=== PATIENT | female | born 1995 | race African-American/Black ===

== ENCOUNTER 2016-11-25 12:04 | Emergency (ER) | payer OTHER, SELFPAY ==
[~2016-11-25] VITALS: Ht 162.6 cm; Wt 81.8 kg
[2016-11-25 15:18] VITALS: BP 132/79
== END 2016-11-25 15:21 | disposition home or self-care (01) ==
LOC: EMS 12:06
DX: J06.9 Acute upper respiratory infection, unspecified (principal)
CPT/HCPCS: 99283

== ENCOUNTER 2017-09-07 00:29 | Observation (INO) | payer OTHER ==
[~2017-09-07] VITALS: Ht 162.6 cm; Wt 93.4 kg
[2017-09-07 02:02] VITALS: BP 121/69
== END 2017-09-07 01:57 | disposition home or self-care (01) ==
LOC: 4S 00:34
PROVIDERS: ADMIT Obstetrics & Gynecology; ATTEND Obstetrics & Gynecology
DX: O42.913 Preterm premature rupture of membranes, unspecified as to length of time between rupture and onset of labor, third trimester (principal); Z3A.31 31 weeks gestation of pregnancy
CPT/HCPCS: 36415; 59025; 89060; G0378

== ENCOUNTER 2017-10-01 21:03 | Observation (INO) | payer MEDICAID, OTHER ==
[2017-10-01] MEDS ORDERED: PREN1TAB80 PO (22:05)
[2017-10-01] MEDS ORDERED: IRON-24 PO (22:06)
[2017-10-01 22:07] VITALS: BP 119/78
== END 2017-10-02 00:15 | disposition home or self-care (01) ==
LOC: 4S 21:03
PROVIDERS: ADMIT Obstetrics & Gynecology; ATTEND Obstetrics & Gynecology
DX: O62.9 Abnormality of forces of labor, unspecified (principal); O26.893 Other specified pregnancy related conditions, third trimester; R10.9 Unspecified abdominal pain; Z3A.36 36 weeks gestation of pregnancy
CPT/HCPCS: 59025; G0378 ×2

== ENCOUNTER 2017-10-05 12:50 | Observation (INO) | payer MEDICAID, OTHER ==
[~2017-10-05] VITALS: Ht 162.6 cm; Wt 94.3 kg
[~2017-10-05 12:50] MED LIST: IRON-24 PO; PREN1TAB80 PO
[2017-10-05 13:46] VITALS: BP 123/75
== END 2017-10-05 14:45 | disposition home or self-care (01) ==
LOC: 4S 12:50
PROVIDERS: ADMIT Obstetrics & Gynecology; ATTEND Obstetrics & Gynecology
DX: O69.5XX0 Labor and delivery complicated by vascular lesion of cord, not applicable or unspecified (principal); Z3A.36 36 weeks gestation of pregnancy
CPT/HCPCS: 59025; 76805; G0378

== ENCOUNTER 2017-10-15 09:40 | Observation (INO) | payer MEDICAID ==
[~2017-10-15] VITALS: Ht 162.6 cm; Wt 91.2 kg
[2017-10-15 10:00] VITALS: BP 116/73
== END 2017-10-15 11:45 | disposition home or self-care (01) ==
LOC: 4S 09:40
PROVIDERS: ADMIT Obstetrics & Gynecology; ATTEND Obstetrics & Gynecology
DX: O62.9 Abnormality of forces of labor, unspecified (principal); O42.92 Full-term premature rupture of membranes, unspecified as to length of time between rupture and onset of labor; O99.013 Anemia complicating pregnancy, third trimester; Z3A.38 38 weeks gestation of pregnancy
CPT/HCPCS: 36415; 59025; 89060; G0378

== ENCOUNTER 2018-08-12 21:44 | Emergency (ER) | payer SELFPAY ==
[~2018-08-12] VITALS: Ht 162.6 cm; Wt 86.4 kg
[2018-08-13 05:26] VITALS: BP 129/77
== END 2018-08-13 05:33 | disposition home or self-care (01) ==
LOC: EMS 21:45
DX: F41.9 Anxiety disorder, unspecified (principal); J02.9 Acute pharyngitis, unspecified; K29.70 Gastritis, unspecified, without bleeding; K21.9 Gastro-esophageal reflux disease without esophagitis

== ENCOUNTER 2018-08-29 19:19 | Emergency (ER) | payer SELFPAY ==
[~2018-08-29] VITALS: Ht 162.6 cm; Wt 86.4 kg
[2018-08-29] MEDS ORDERED: OMEP20 PO (19:42)
[2018-08-29] MEDS ORDERED: ACETAMINOPHEN/CODEINE 300-30 MG TABLET PO ONE (20:30)
[2018-08-29 21:08] VITALS: BP 136/87
== END 2018-08-29 21:18 | disposition home or self-care (01) ==
LOC: EMS 19:21
DX: K02.9 Dental caries, unspecified (principal); I10 Essential (primary) hypertension; K21.9 Gastro-esophageal reflux disease without esophagitis; F41.9 Anxiety disorder, unspecified

== ENCOUNTER 2018-08-30 18:57 | Emergency (ER) | payer SELFPAY ==
[~2018-08-30] VITALS: Ht 170.2 cm; Wt 86.4 kg
[~2018-08-30 18:57] MED LIST changes: -IRON-24 PO; +OMEP20 PO; -PREN1TAB80 PO
[2018-08-30] MEDS ORDERED: HydrOXYzine PAMOATE 25 MG CAPSULE PO ONE (21:00)
[2018-08-30 22:00] VITALS: BP 132/73
== END 2018-08-30 22:31 | disposition home or self-care (01) ==
LOC: EMS 18:58
DX: M62.838 Other muscle spasm (principal); I10 Essential (primary) hypertension; K21.9 Gastro-esophageal reflux disease without esophagitis; F41.9 Anxiety disorder, unspecified

== ENCOUNTER 2018-09-13 21:10 | Emergency (ER) | payer SELFPAY ==
[~2018-09-13] VITALS: Ht 162.6 cm; Wt 81.8 kg
[2018-09-13 21:20] VITALS: BP 149/95
[2018-09-13] MEDS ORDERED: MET750 PO (21:26)
== END 2018-09-13 23:03 | disposition left against medical advice (07) ==
LOC: EMS 21:10
DX: R52 Pain, unspecified (principal); Z53.21 Procedure and treatment not carried out due to patient leaving prior to being seen by health care provider

== ENCOUNTER 2018-10-05 19:49 | Emergency (ER) | payer OTHER ==
[~2018-10-05] VITALS: Ht 162.6 cm; Wt 94.5 kg
[~2018-10-05 19:49] MED LIST changes: +MET750 PO; -OMEP20 PO
[2018-10-05] MEDS ORDERED: PB/HYOSCY/ATR/SCOP/LIDO/MAALOX 55 ML BOTTLE PO ONE (21:45)
[2018-10-05 22:04] LABS: BASOPHILS % (AUTO) 0.4 % (0.0-2.0); EOSINOPHILS % (AUTO) 1.9 % (1.0-6.0); HEMATOCRIT 36.7 % (36-46); HEMOGLOBIN 12.5 g/dL (12.0-16.0); LYMPHOCYTES # (AUTO) 3.7 K/uL (1.0-4.8); LYMPHOCYTES % (AUTO) 31.4 % (22.0-44.0); MEAN CORPUSCULAR HEMOGLOBIN 25.6 pg (26.0-34.0); MEAN CORPUSCULAR HGB CONC 34.1 G/dL (31.0-37.0); MEAN CORPUSCULAR VOLUME 75 fL (80-100); MONOCYTES # (AUTO) 0.9 K/uL (0.1-1.0); MONOCYTES % (AUTO) 7.8 % (2.0-9.0); NEUTROPHILS # (AUTO) 6.9 K/uL (1.8-7.7); NEUTROPHILS % (AUTO) 58.5 % (40.0-70.0); PLATELET COUNT (AUTO) 353 K/uL (150-450); RED CELL DISTRIBUTION WIDTH 14.1 % (11.5-14.5)
[2018-10-05 22:17] LABS: APPEARANCE,URINE CLEAR (CLEAR); BILIRUBIN,URINE NEGATIVE (NEGATIVE); GLUCOSE, URINE (UA) NEGATIVE (NEGATIVE); KETONES,URINE NEGATIVE (NEGATIVE); LEUKOCYTE ESTERASE ,URINE NEGATIVE (NEGATIVE); NITRATE,URINE NEGATIVE (NEGATIVE); OCCULT BLOOD,URINE SMALL (NEGATIVE); PH,URINE 7.5 (5.0-8.0); PROTEIN,URINE TRACE (NEGATIVE); UROBILINOGEN,URINE 0.2 mg/dL (<=1.0)
[2018-10-05 22:25] LABS: ANION GAP 9 mmol/L (8-16); CALCIUM, TOTAL 9.4 mg/dL (8.8-10.5); CARBON DIOXIDE 28 mmol/L (22-29); CHLORIDE 102 mmol/L (98-107); CREATININE 0.62 mg/dL (0.60-1.30); GLOMERULAR FILTR. RATE CALC > 60 mL/min (>60); GLUCOSE,RANDOM 91 mg/dL (70-110); POTASSIUM 3.8 mmol/L (3.5-5.1); SODIUM SERUM 139 mmol/L (136-145); UREA NITROGEN, BLOOD 11 mg/dL (7-18)
[2018-10-05 22:31] LABS: ALANINE AMINOTRANSFERASE 76 U/L (12-78); ALBUMIN 4.2 g/dL (3.4-5.0); ALKALINE PHOSPHATASE 128 U/L (46-116); ASPARTATE AMINOTRANSFERASE 41 U/L (15-37); BILIRUBIN,TOTAL 0.2 mg/dL (0.1-1.0); LIPASE 190 U/L (73-393); TOTAL PROTEIN, SERUM 8.6 g/dL (6.4-8.2)
[2018-10-05 22:34] LABS: BACTERIA,URINE Rare /HPF (None Seen); SQUAMOUS EPITHELIAL CELL,UR Few /LPF (None Seen); WBC,URINE 0-2 /HPF (0-5)
[2018-10-05 22:40] VITALS: BP 138/88
[2018-10-05 22:47] LABS: PLATELET MORPHOLOGY COMMENT NORMAL
== END 2018-10-05 22:54 | disposition home or self-care (01) ==
LOC: EMS 19:51
DX: R10.9 Unspecified abdominal pain (principal); M79.601 Pain in right arm; M79.604 Pain in right leg; I10 Essential (primary) hypertension; K21.9 Gastro-esophageal reflux disease without esophagitis; F41.9 Anxiety disorder, unspecified

== ENCOUNTER 2018-10-12 15:05 | Emergency (ER) | payer OTHER ==
[~2018-10-12] VITALS: Ht 162.6 cm; Wt 94.5 kg
[2018-10-12] MEDS ORDERED: METHOCARBAMOL 500 MG TABLET PO ONE (16:30)
[2018-10-12] MEDS ORDERED: KETOROLAC TROMETHAMINE 30 MG/ML VIAL IM ONE (16:30)
[2018-10-12 17:20] VITALS: BP 141/87
== END 2018-10-12 17:45 | disposition home or self-care (01) ==
LOC: EMS 15:06
DX: M54.41 Lumbago with sciatica, right side (principal); I10 Essential (primary) hypertension; F41.9 Anxiety disorder, unspecified; K21.9 Gastro-esophageal reflux disease without esophagitis
CPT/HCPCS: 96372; 99283; J1885

== ENCOUNTER 2018-11-29 18:51 | Emergency (ER) | payer OTHER ==
[~2018-11-29] VITALS: Ht 162.6 cm; Wt 90.9 kg
[2018-11-29] MEDS ORDERED: RANI50VI4 IM (19:00)
[2018-11-29] MEDS ORDERED: FERR134T2 PO (19:00)
[2018-11-29 19:24] LABS: BASOPHILS % (AUTO) 0.2 % (0.0-2.0); EOSINOPHILS % (AUTO) 3.1 % (1.0-6.0); HEMATOCRIT 35.7 % (36-46); HEMOGLOBIN 12.3 g/dL (12.0-16.0); LYMPHOCYTES # (AUTO) 3.5 K/uL (1.0-4.8); LYMPHOCYTES % (AUTO) 29.3 % (22.0-44.0); MEAN CORPUSCULAR HEMOGLOBIN 25.8 pg (26.0-34.0); MEAN CORPUSCULAR HGB CONC 34.5 G/dL (31.0-37.0); MEAN CORPUSCULAR VOLUME 75 fL (80-100); MONOCYTES # (AUTO) 0.9 K/uL (0.1-1.0); MONOCYTES % (AUTO) 7.9 % (2.0-9.0); NEUTROPHILS % (AUTO) 59.5 % (40.0-70.0); PLATELET COUNT (AUTO) 343 K/uL (150-450); RED BLOOD CELL COUNT(AUTO) 4.78 MIL/uL (4.00-5.20); RED CELL DISTRIBUTION WIDTH 14.7 % (11.5-14.5)
[2018-11-29 19:39] LABS: ANION GAP 7 mmol/L (8-16); CALCIUM, TOTAL 9.4 mg/dL (8.8-10.5); CARBON DIOXIDE 30 mmol/L (22-29); CHLORIDE 100 mmol/L (98-107); CREATININE 0.71 mg/dL (0.60-1.30); GLOMERULAR FILTR. RATE CALC > 60 mL/min (>60); GLUCOSE,RANDOM 84 mg/dL (70-110); POTASSIUM 3.3 mmol/L (3.5-5.1); SODIUM SERUM 137 mmol/L (136-145); UREA NITROGEN, BLOOD 8 mg/dL (7-18)
[2018-11-29 19:51] LABS: ALANINE AMINOTRANSFERASE 64 U/L (12-78); ALBUMIN 3.9 g/dL (3.4-5.0); ALKALINE PHOSPHATASE 116 U/L (46-116); ASPARTATE AMINOTRANSFERASE 30 U/L (15-37); BILIRUBIN,TOTAL 0.4 mg/dL (0.1-1.0); HCG,QUANTITATIVE < 1 mIU/mL (0-6); LIPASE 176 U/L (73-393); TOTAL PROTEIN, SERUM 8.4 g/dL (6.4-8.2)
[2018-11-29 21:38] LABS: APPEARANCE,URINE CLOUDY (CLEAR); BILIRUBIN,URINE NEGATIVE (NEGATIVE); GLUCOSE, URINE (UA) NEGATIVE (NEGATIVE); KETONES,URINE TRACE mg/dL (NEGATIVE); LEUKOCYTE ESTERASE ,URINE NEGATIVE (NEGATIVE); NITRATE,URINE NEGATIVE (NEGATIVE); OCCULT BLOOD,URINE LARGE (NEGATIVE); PH,URINE 5.5 (5.0-8.0); PROTEIN,URINE NEGATIVE (NEGATIVE)
[2018-11-29 21:56] VITALS: BP 128/79
[2018-11-29 21:58] LABS: AMPHET/METH SCREEN,URINE NEGATIVE (NEGATIVE); BARBITURATE SCREEN, URINE NEGATIVE (NEGATIVE); BENZODIAZEPINES SCREEN,URINE NEGATIVE (NEGATIVE); CANNABINOID SCREEN,URINE NEGATIVE (NEGATIVE); COCAINE SCREEN,URINE NEGATIVE (NEGATIVE); METHADONE SCREEN, URINE NEGATIVE (NEGATIVE); OPIATE SCREEN,URINE NEGATIVE (NEGATIVE); PHENCYCLIDINE SCREEN,URINE NEGATIVE (NEGATIVE)
[2018-11-29] MEDS ORDERED: FERROUS GLUCONATE 324 MG TABLET PO ONE (22:00)
[2018-11-29 22:08] LABS: BACTERIA,URINE Few /HPF (None Seen); MUCUS,URINE Few LPF (None Seen); SQUAMOUS EPITHELIAL CELL,UR Moderate /LPF (None Seen); WBC,URINE 0-2 /HPF (0-5)
== END 2018-11-29 22:41 | disposition home or self-care (01) ==
LOC: EMS 18:52
DX: R07.81 Pleurodynia (principal); F41.9 Anxiety disorder, unspecified; I10 Essential (primary) hypertension; Z79.899 Other long term (current) drug therapy

== ENCOUNTER 2020-06-15 18:22 | Emergency (ER) | payer OTHER ==
[~2020-06-15] VITALS: Ht 162.6 cm; Wt 111.8 kg
[~2020-06-15 18:22] MED LIST changes: +FERR134T2 PO; -MET750 PO; +RANI50VI4 IM
[2020-06-15] MEDS ORDERED: SERT50TA12 PO (18:29)
[2020-06-15] MEDS ORDERED: ACET-2865 PO (18:29)
[2020-06-15] MEDS ORDERED: FAMO20 PO (18:29)
[2020-06-15 19:15] VITALS: BP 127/74
== END 2020-06-15 19:34 | disposition home or self-care (01) ==
LOC: EMS 18:29
DX: S09.93XA Unspecified injury of face, initial encounter (principal); F41.9 Anxiety disorder, unspecified; K21.9 Gastro-esophageal reflux disease without esophagitis; I10 Essential (primary) hypertension; X58.XXXA Exposure to other specified factors, initial encounter; Y93.89 Activity, other specified; Y92.89 Other specified places as the place of occurrence of the external cause; Y99.8 Other external cause status
CPT/HCPCS: 99283; Z7502

== ENCOUNTER 2021-02-21 06:36 | Emergency (ER) | payer OTHER ==
[~2021-02-21] VITALS: Ht 165.1 cm; Wt 104.5 kg
[~2021-02-21 06:36] MED LIST changes: +ACET-2247 PO; +FAMO20 PO; -RANI50VI4 IM; +SERT-158 PO
[2021-02-21] MEDS ORDERED: KETOROLAC TROMETHAMINE 30 MG/ML VIAL IVP ONE (07:30)
[2021-02-21] MEDS ORDERED: SODIUM CHLORIDE 0.9% 1,000 ML IV ONE (07:30)
[2021-02-21] MEDS ORDERED: MECLIZINE HCL 25 MG TABLET PO ONE (07:30)
[2021-02-21] MEDS ORDERED: ONDANSETRON HCL 4 MG/2 ML VIAL IVP ONE (07:30)
[2021-02-21 07:53] LABS: BASOPHILS % (AUTO) 0.4 % (0.0-2.0); EOSINOPHILS % (AUTO) 3.3 % (1.0-6.0); HEMATOCRIT 35.2 % (36-46); LYMPHOCYTES # (AUTO) 3.9 K/uL (1.0-4.8); LYMPHOCYTES % (AUTO) 38.9 % (22.0-44.0); MEAN CORPUSCULAR HEMOGLOBIN 25.8 pg (26.0-34.0); MEAN CORPUSCULAR HGB CONC 34.1 G/dL (31.0-37.0); MEAN CORPUSCULAR VOLUME 76 fL (80-100); MONOCYTES # (AUTO) 0.7 K/uL (0.1-1.0); NEUTROPHILS % (AUTO) 50.4 % (40.0-70.0); PLATELET COUNT (AUTO) 330 K/uL (150-450); RED BLOOD CELL COUNT(AUTO) 4.65 MIL/uL (4.00-5.20); RED CELL DISTRIBUTION WIDTH 14.5 % (11.5-14.5)
[2021-02-21 07:59] LABS: COVID AG,FIA SOURCE NASOPHARYNGEAL
[2021-02-21 08:02] LABS: CALCIUM, TOTAL 8.9 mg/dL (8.8-10.5); CARBON DIOXIDE 26 mmol/L (22-29); CHLORIDE 99 mmol/L (98-107); CREATININE 0.74 mg/dL (0.60-1.30); GLOMERULAR FILTR. RATE CALC > 60 mL/min (>60); GLUCOSE,RANDOM 121 mg/dL (70-110); POTASSIUM 3.8 mmol/L (3.5-5.1); UREA NITROGEN, BLOOD 5 mg/dL (7-18)
[2021-02-21 08:04] LABS: URIC ACID 6.5 mg/dL (2.6-7.2)
[2021-02-21 08:09] LABS: % IRON SATURATION 10.6 % (22-44); IRON, SERUM 43 mcg/dL (50-175); TOTAL IRON BINDING CAPACITY 402 mcg/dL (250-450)
[2021-02-21 08:11] LABS: ANION GAP 11 mmol/L (8-16); SODIUM SERUM 136 mmol/L (136-145)
[2021-02-21 08:13] LABS: ALANINE AMINOTRANSFERASE 165 U/L (12-78); ALBUMIN 4.2 g/dL (3.4-5.0); ALKALINE PHOSPHATASE 157 U/L (46-116); ASPARTATE AMINOTRANSFERASE 97 U/L (15-37); BILIRUBIN,TOTAL 0.3 mg/dL (0.1-1.0); HCG,QUANTITATIVE < 1 mIU/mL (0-6); LIPASE 144 U/L (73-393); TOTAL PROTEIN, SERUM 8.2 g/dL (6.4-8.2)
[2021-02-21 12:53] VITALS: BP 138/80
== END 2021-02-21 12:54 | disposition home or self-care (01) ==
LOC: EMS 06:37
DX: S39.012A Strain of muscle, fascia and tendon of lower back, initial encounter (principal); K21.9 Gastro-esophageal reflux disease without esophagitis; K76.0 Fatty (change of) liver, not elsewhere classified; R51.9 Headache, unspecified; R42 Dizziness and giddiness; K82.4 Cholesterolosis of gallbladder; R10.2 Pelvic and perineal pain; Z20.822 Contact with and (suspected) exposure to COVID-19; X58.XXXA Exposure to other specified factors, initial encounter; Y93.89 Activity, other specified; Y92.89 Other specified places as the place of occurrence of the external cause; Y99.8 Other external cause status
CPT/HCPCS: 71045; 72100; 76700; 80053; 83540; 83550; 83690; 84550; 84702; 85025; 87426; 96361; 96374; 96375; 99285; J1885; J2405; J7030

== ENCOUNTER 2021-09-29 00:58 | Emergency (ER) | payer OTHER ==
[~2021-09-29] VITALS: Ht 162.6 cm; Wt 94.5 kg
[2021-09-29 01:01] VITALS: BP 131/77
[2021-09-29 03:21] LABS: BASOPHILS % (AUTO) 0.3 % (0.0-2.0); EOSINOPHILS % (AUTO) 1.7 % (1.0-6.0); HEMOGLOBIN 11.6 g/dL (12.0-16.0); LYMPHOCYTES # (AUTO) 4.4 K/uL (1.0-4.8); LYMPHOCYTES % (AUTO) 29.8 % (22.0-44.0); MEAN CORPUSCULAR HEMOGLOBIN 23.9 pg (26.0-34.0); MEAN CORPUSCULAR HGB CONC 34.2 G/dL (31.0-37.0); MEAN CORPUSCULAR VOLUME 70 fL (80-100); MONOCYTES # (AUTO) 0.8 K/uL (0.1-1.0); MONOCYTES % (AUTO) 5.1 % (2.0-9.0); NEUTROPHILS # (AUTO) 9.3 K/uL (1.8-7.7); NEUTROPHILS % (AUTO) 63.1 % (40.0-70.0); PLATELET COUNT (AUTO) 349 K/uL (150-450); RED BLOOD CELL COUNT(AUTO) 4.86 MIL/uL (4.00-5.20); RED CELL DISTRIBUTION WIDTH 16.6 % (11.5-14.5)
[2021-09-29 03:36] LABS: APPEARANCE,URINE CLEAR (CLEAR); BILIRUBIN,URINE NEGATIVE (NEGATIVE); GLUCOSE, URINE (UA) NEGATIVE (NEGATIVE); KETONES,URINE NEGATIVE (NEGATIVE); LEUKOCYTE ESTERASE ,URINE NEGATIVE (NEGATIVE); NITRATE,URINE NEGATIVE (NEGATIVE); OCCULT BLOOD,URINE MODERATE (NEGATIVE); PROTEIN,URINE NEGATIVE (NEGATIVE); UROBILINOGEN,URINE 0.2 mg/dL (<=1.0)
[2021-09-29 03:36] LABS: ANION GAP 11 mmol/L (8-16); CALCIUM, TOTAL 9.1 mg/dL (8.8-10.5); CARBON DIOXIDE 26 mmol/L (22-29); CHLORIDE 101 mmol/L (98-107); CREATININE 0.76 mg/dL (0.60-1.30); GLOMERULAR FILTR. RATE CALC > 60 mL/min (>60); GLUCOSE,RANDOM 121 mg/dL (70-110); POTASSIUM 3.9 mmol/L (3.5-5.1); SODIUM SERUM 138 mmol/L (136-145); UREA NITROGEN, BLOOD 6 mg/dL (7-18)
[2021-09-29 03:39] LABS: BACTERIA,URINE Rare /HPF (None Seen); WBC,URINE 0-2 /HPF (0-5)
[2021-09-29 03:47] LABS: ALANINE AMINOTRANSFERASE 39 U/L (12-78); ALBUMIN 3.5 g/dL (3.4-5.0); ALKALINE PHOSPHATASE 102 U/L (46-116); ASPARTATE AMINOTRANSFERASE 33 U/L (15-37); BILIRUBIN,TOTAL 0.3 mg/dL (0.1-1.0); HCG,QUANTITATIVE 718 mIU/mL (0-6); LIPASE 102 U/L (73-393)
== END 2021-09-29 04:17 | disposition home or self-care (01) ==
LOC: EMS 01:00
DX: O26.891 Other specified pregnancy related conditions, first trimester (principal); R07.89 Other chest pain; I10 Essential (primary) hypertension; F41.9 Anxiety disorder, unspecified; K21.9 Gastro-esophageal reflux disease without esophagitis; Z79.899 Other long term (current) drug therapy; Z3A.01 Less than 8 weeks gestation of pregnancy
CPT/HCPCS: 76801; 76817; 80053; 81001; 83690; 84702; 85025; 99284

== ENCOUNTER 2024-12-16 14:52 | Emergency (ER) | payer OTHER ==
[~2024-12-16] VITALS: Ht 162.6 cm; Wt 99.1 kg
[2024-12-16 14:54] VITALS: BP 143/99; PULSE 82; RESP 18; TEMP 98.7; O2SAT 99
[2024-12-16] MEDS ORDERED: METF-1211 PO (14:59)
[2024-12-16] MEDS ORDERED: [UNRECOGNIZED DRUG - CODE] PO (14:59)
[2024-12-16] MEDS ORDERED: OXYC-38 PO (15:00)
[2024-12-16] MEDS: OxyCODONE HCL/ACETAMINOPHEN 5-325 MG TABLET PO ONE (15:18)
== END 2024-12-16 15:20 | disposition home or self-care (01) ==
LOC: EMS 14:52
DX: K08.89 Other specified disorders of teeth and supporting structures (principal); F41.9 Anxiety disorder, unspecified; E11.9 Type 2 diabetes mellitus without complications; I10 Essential (primary) hypertension; Z71.6 Tobacco abuse counseling; Z79.84 Long term (current) use of oral hypoglycemic drugs; Z87.19 Personal history of other diseases of the digestive system
CPT/HCPCS: 82962; 99283

== ENCOUNTER 2025-03-06 15:44 | Emergency (ER) | payer OTHER ==
[~2025-03-06] VITALS: Ht 162.6 cm; Wt 96.8 kg
[~2025-03-06 15:44] MED LIST changes: -ACET-2247 PO; -FAMO20 PO; -FERR134T2 PO; +METF-1211 PO; +OXYC-38 PO; -SERT-158 PO; +[UNRECOGNIZED DRUG - CODE] PO
[2025-03-06 15:52] VITALS: BP 130/64; PULSE 92; RESP 18; TEMP 98.2; O2SAT 98
[2025-03-06 16:30] LABS: BASOPHILS % (AUTO) 0.7 % (0.0-2.0); HEMATOCRIT 37.2 % (36-46); HEMOGLOBIN 12.5 g/dL (12.0-16.0); LYMPHOCYTES # (AUTO) 4.3 K/uL (1.0-4.8); LYMPHOCYTES % (AUTO) 29.8 % (22.0-44.0); MEAN CORPUSCULAR HEMOGLOBIN 24.8 pg (26.0-34.0); MEAN CORPUSCULAR HGB CONC 33.5 G/dL (31.0-37.0); MEAN CORPUSCULAR VOLUME 74 fL (80-100); MONOCYTES % (AUTO) 7.1 % (2.0-9.0); NEUTROPHILS # (AUTO) 8.6 K/uL (1.8-7.7); NEUTROPHILS % (AUTO) 60.4 % (40.0-70.0); PLATELET COUNT (AUTO) 349 K/uL (150-450); RED BLOOD CELL COUNT(AUTO) 5.02 MIL/uL (4.00-5.20); RED CELL DISTRIBUTION WIDTH 14.9 % (11.5-14.5); WHITE BLOOD COUNT (AUTO) 14.3 K/uL (4.5-11.0)
[2025-03-06] MEDS ORDERED: PREN-18 PO (18:50)
== END 2025-03-06 19:13 | disposition home or self-care (01) ==
LOC: EMS 15:45
DX: K21.9 Gastro-esophageal reflux disease without esophagitis (principal); O24.311 Unspecified pre-existing diabetes mellitus in pregnancy, first trimester; O99.341 Other mental disorders complicating pregnancy, first trimester; O26.892 Other specified pregnancy related conditions, second trimester; F41.9 Anxiety disorder, unspecified; R10.31 Right lower quadrant pain; Z87.19 Personal history of other diseases of the digestive system; Z79.899 Other long term (current) drug therapy
CPT/HCPCS: 76801; 82962; 84702; 85025; 86901; 99284

== ENCOUNTER 2025-04-13 12:00 | Emergency (ER) | payer OTHER ==
[~2025-04-13] VITALS: Ht 160 cm; Wt 95.5 kg
[~2025-04-13 12:00] MED LIST changes: +PREN-18 PO
[2025-04-13 12:40] LABS: CALCIUM, TOTAL 9.3 mg/dL (8.8-10.5); CREATININE 0.62 mg/dL (0.60-1.30); GLOMERULAR FILTR. RATE CALC > 60 mL/min (>60); GLUCOSE,RANDOM 94 mg/dL (70-110); PLATELET COUNT (AUTO) 294 K/uL (150-450); RED BLOOD CELL COUNT(AUTO) 4.71 MIL/uL (4.00-5.20); RED CELL DISTRIBUTION WIDTH 15.0 % (11.5-14.5); SODIUM SERUM 139 mmol/L (136-145); WHITE BLOOD COUNT (AUTO) 14.6 K/uL (4.5-11.0)
[2025-04-13 12:41] LABS: RBC MORPHOLOGY COMMENT ABNORMAL RBC MORPH
[2025-04-13 12:59] LABS: UREA NITROGEN, BLOOD 4 mg/dL (7-18)
[2025-04-13 13:04] VITALS: BP 128/86; PULSE 88; RESP 16; TEMP 98.5; O2SAT 97
[2025-04-13 13:07] LABS: ASPARTATE AMINOTRANSFERASE 17.0 U/L (15-37); HCG,QUANTITATIVE 73439.0 mIU/mL (0-6); TOTAL PROTEIN, SERUM 7.7 g/dL (6.4-8.2)
== END 2025-04-13 14:16 | disposition home or self-care (01) ==
LOC: EMS 12:00
DX: O46.91 Antepartum hemorrhage, unspecified, first trimester (principal); O99.611 Diseases of the digestive system complicating pregnancy, first trimester; I10 Essential (primary) hypertension; E11.9 Type 2 diabetes mellitus without complications; K21.9 Gastro-esophageal reflux disease without esophagitis; Z87.19 Personal history of other diseases of the digestive system; Z79.899 Other long term (current) drug therapy; Z3A.09 9 weeks gestation of pregnancy
CPT/HCPCS: 76801; 80048; 80076; 82962; 84702; 85025; 99284

== ENCOUNTER 2025-05-27 01:34 | Emergency (ER) | payer OTHER ==
[~2025-05-27] VITALS: Ht 162.6 cm; Wt 97.7 kg
[2025-05-27 02:01] VITALS: TEMP 98.2
[2025-05-27 02:09] VITALS: BP 117/68; PULSE 90; RESP 16; O2SAT 99
[2025-05-27 02:24] LABS: PLATELET COUNT (AUTO) 282 K/uL (150-450); RED BLOOD CELL COUNT(AUTO) 4.37 MIL/uL (4.00-5.20); RED CELL DISTRIBUTION WIDTH 15.1 % (11.5-14.5); WHITE BLOOD COUNT (AUTO) 17.0 K/uL (4.5-11.0)
[2025-05-27 02:49] LABS: CALCIUM, TOTAL 9.3 mg/dL (8.8-10.5); CREATININE 0.66 mg/dL (0.60-1.30); GLOMERULAR FILTR. RATE CALC > 60 mL/min (>60); GLUCOSE,RANDOM 119 mg/dL (70-110); SODIUM SERUM 136 mmol/L (136-145); UREA NITROGEN, BLOOD 5 mg/dL (7-18)
[2025-05-27 03:07] LABS: APPEARANCE,URINE CLEAR (CLEAR); GLUCOSE, URINE (UA) NEGATIVE (NEGATIVE); LEUKOCYTE ESTERASE ,URINE NEGATIVE (NEGATIVE); NITRATE,URINE NEGATIVE (NEGATIVE); OCCULT BLOOD,URINE MODERATE (NEGATIVE); SPECIFIC GRAVITIY, URINE 1.028 (1.003-1.030)
[2025-05-27 03:24] LABS: SQUAMOUS EPITHELIAL CELL,UR Few /LPF (None Seen)
== END 2025-05-27 04:36 | disposition home or self-care (01) ==
LOC: EMS 01:34
DX: O26.892 Other specified pregnancy related conditions, second trimester (principal); O24.912 Unspecified diabetes mellitus in pregnancy, second trimester; O16.2 Unspecified maternal hypertension, second trimester; O99.612 Diseases of the digestive system complicating pregnancy, second trimester; R10.30 Lower abdominal pain, unspecified; K31.89 Other diseases of stomach and duodenum; Z87.19 Personal history of other diseases of the digestive system; Z79.899 Other long term (current) drug therapy; Z3A.17 17 weeks gestation of pregnancy; Y08.89XA Assault by other specified means, initial encounter; Y93.89 Activity, other specified; Y92.89 Other specified places as the place of occurrence of the external cause; Y99.8 Other external cause status
CPT/HCPCS: 76801; 80048; 81001; 83690; 85025; 93005; 99284

== ENCOUNTER 2025-08-31 02:09 | Emergency (ER) | payer OTHER ==
[~2025-08-31] VITALS: Ht 162.6 cm; Wt 97.3 kg
[2025-08-31 02:27] VITALS: TEMP 99
[2025-08-31 02:40] LABS: COVID AG,FIA SOURCE NASAL SWAB
[2025-08-31 03:03] LABS: INFLUENZA TYPE A NEGATIVE FOR TYPE A (NEGATIVE); INFLUENZA TYPE B NEGATIVE FOR TYPE B (NEGATIVE); SARS-COV2 (COVID) ANTIGEN,FIA Negative (Negative)
[2025-08-31 03:57] LABS: PLATELET COUNT (AUTO) 246 K/uL (150-450); RED BLOOD CELL COUNT(AUTO) 4.04 MIL/uL (4.00-5.20); RED CELL DISTRIBUTION WIDTH 15.0 % (11.5-14.5); WHITE BLOOD COUNT (AUTO) 13.2 K/uL (4.5-11.0)
[2025-08-31] MEDS: ONDANSETRON HCL 4 MG/2 ML VIAL IVP ONE (04:01)
[2025-08-31] MEDS: SODIUM CHLORIDE 0.9% 1,000 ML IV ONE (04:01)
[2025-08-31 04:09] LABS: CALCIUM, TOTAL 8.5 mg/dL (8.8-10.5); CREATININE 0.59 mg/dL (0.60-1.30); GLOMERULAR FILTR. RATE CALC > 60 mL/min (>60); GLUCOSE,RANDOM 114 mg/dL (70-110); SODIUM SERUM 135 mmol/L (136-145); UREA NITROGEN, BLOOD 5 mg/dL (7-18)
[2025-08-31 04:13] LABS: ASPARTATE AMINOTRANSFERASE 29.0 U/L (15-37); TOTAL PROTEIN, SERUM 7.3 g/dL (6.4-8.2)
[2025-08-31 04:22] LABS: APPEARANCE,URINE CLEAR (CLEAR); GLUCOSE, URINE (UA) NEGATIVE (NEGATIVE); LEUKOCYTE ESTERASE ,URINE NEGATIVE (NEGATIVE); NITRATE,URINE NEGATIVE (NEGATIVE); OCCULT BLOOD,URINE MODERATE (NEGATIVE); SPECIFIC GRAVITIY, URINE 1.031 (1.003-1.030)
[2025-08-31 04:30] LABS: SQUAMOUS EPITHELIAL CELL,UR Few /LPF (None Seen)
[2025-08-31 05:29] VITALS: BP 127/71; PULSE 92; RESP 16; O2SAT 98
== END 2025-08-31 05:33 | disposition home or self-care (01) ==
LOC: EMS 02:12
DX: O21.2 Late vomiting of pregnancy (principal); O10.913 Unspecified pre-existing hypertension complicating pregnancy, third trimester; O24.113 Pre-existing type 2 diabetes mellitus, in pregnancy, third trimester; K21.9 Gastro-esophageal reflux disease without esophagitis; Z87.19 Personal history of other diseases of the digestive system; Z79.899 Other long term (current) drug therapy; Z3A.30 30 weeks gestation of pregnancy; Z20.822 Contact with and (suspected) exposure to COVID-19
CPT/HCPCS: 99285; 96374; 76805; 87426; 80048; 80076; 81001; 83690; 85025; 87804; 36415; J2405; J7030